=== PATIENT | female | born 1945 | race Two or more races ===

== ENCOUNTER 2016-12-31 11:21 | Emergency (ER) | payer MEDICARE ==
[~2016-12-31] VITALS: Ht 152.4 cm; Wt 68.0 kg
[2016-12-31] MEDS ORDERED: Norco 5mg/325mg tab ORAL ONE (11:30)
[2016-12-31] MEDS ORDERED: Tetanus/Diptheria/Pertussis Vaccine 0.5ml Syr IM ONE (11:30)
--- NOTE | 2016-12-31 11:32 | Emergency Room Report ---
History of Present Illness General Chief Complaint: Lower Extremity Injury Source: Patient Present Illness HPI Patient fell. She slipped on a wet floor in a store. She hit her left knee and also her head. She did not lose consciousness. She is unable to ambulate and has severe pain in her knee radiating up to her hip area. There is a scrape on her knee. The pain is 6/10, constant and worse with attempts to bend knee. Sharp and aching. The patient is not on blood thinners. The patient has not had a tetanus shot for more than 15 years. She denies chest pain, NVD, head ache, dyspnea. She denies diabetes. Allergies: Coded Allergies: No Known Allergies (Unverified , 12/31/16) Patient History Past Medical History: see triage record Social History: Denies: smoking Social History Narrative at home Last Menstrual Period: 1985 Reviewed Nursing Documentation: PMH: Agreed, PSxH: Agreed Nursing Documentation-PM Past Medical History: No History, Except For Hx Hypertension: Yes - Hyperlipidemia Review of Systems All Other Systems: negative except mentioned in HPI Physical Exam Vital Signs Date Time Temp Pulse Resp B/P Pulse Ox O2 Delivery O2 Flow Rate FiO2 12/31/16 11:05 99.0 76 16 187/82 95 Room Air Sp02 EP Interpretation: reviewed, normal General Appearance: well appearing, no apparent distress Head: normocephalic, other - bruise L forehead Eyes: bilateral eye EOMI, bilateral eye PERRL, bilateral eye normal inspection ENT: hearing grossly normal, normal voice, moist mucus membranes Neck: full range of motion, supple, no bony tend Respiratory: chest non-tender, lungs clear, no respiratory distress, speaking full sentences Cardiovascular #1: regular rate, rhythm Gastrointestinal: normal inspection, non tender, soft, no mass Musculoskeletal: digits/nails normal, no calf tenderness, swelling, other - tenderness L patella. Unable to lift leg. Neurologic: alert, oriented x3, motor strength/tone normal, DTRs symmetric, sensory intact, cerebellar normal, normal gait, speech normal Psychiatric: mood/affect normal Skin: abrasions - L knee, hematoma - L knee Medical Decision Making Diagnostic Impression: Primary Impression: Patella fracture Qualified Codes: S82.032A - Displaced transverse fracture of left patella, initial encounter for closed fracture Additional Impressions: Fall Qualified Codes: W19.XXXA - Unspecified fall, initial encounter Head injury Qualified Codes: S09.90XA - Unspecified injury of head, initial encounter ER Course The patient presents post fall. She hit her head and also her knee. She is unable to ambulate. Differential includes fracture, contusion, sprain. There is no loss of consciousness and a CT of the head is not indicated. Evaluation will be with a knee x-ray. Her physical exam suggests a fracture. She will be treated for pain. The patella it is fractured and distracted. This will need an operation. A knee immobilizer has been ordered. Her graft [facility] Position is good neurovascular is normal. The patient was submitted to be admitted for an operation. Pain was somewhat controlled. Laboratory was obtained. The patient presented to Dr. Dhruv Mckenna at [facility] and accepted in transfer. Patient is stable for transfer. Laboratory Tests Test 12/31/16 13:30 White Blood Count 15.8 K/UL (4.8-10.8) H Red Blood Count 4.59 M/UL (4.20-5.40) Hemoglobin 13.6 G/DL (12.0-16.0) Hematocrit 41.9 % (37.0-47.0) Mean Corpuscular Volume 91 FL (80-99) Mean Corpuscular Hemoglobin 29.7 PG (27.0-31.0) Mean Corpuscular Hemoglobin Concent 32.5 G/DL (32.0-36.0) Red Cell Distribution Width 12.0 % (11.6-14.8) Platelet Count 239 K/UL (150-450) Mean Platelet Volume 7.6 FL (6.5-10.1) Neutrophils (%) (Auto) 82.2 % (45.0-75.0) H Lymphocytes (%) (Auto) 11.6 % (20.0-45.0) L Monocytes (%) (Auto) 5.1 % (1.0-10.0) Eosinophils (%) (Auto) 0.8 % (0.0-3.0) Basophils (%) (Auto) 0.3 % (0.0-2.0) Prothrombin Time 9.9 SEC (9.30-11.50) Prothrombin Time INR 0.9 (0.9-1.1) PTT 26 SEC (23-33) Sodium Level 138 mEQ/L (135-145) Potassium Level 3.8 mEQ/L (3.4-4.9) Chloride Level 101 mEQ/L (98-107) Carbon Dioxide Level 25 mEQ/L (20-30) Anion Gap 12 (5-15) Blood Urea Nitrogen 15 mg/dL (7-23) Creatinine 0.7 mg/dL (0.5-0.9) Estimate Glomerular Filtration Rate > 60 mL/min (>60) Glucose Level 123 mg/dL (74-106) H Calcium Level 9.0 mg/dL (8.6-10.2) Total Bilirubin 0.3 mg/dL (0.0-1.2) Aspartate Amino Transferase (AST) 18 U/L (5-40) Alanine Aminotransferase (ALT) 15 U/L (3-33) Alkaline Phosphatase 96 U/L (35-104) Total Protein 7.2 g/dL (6.6-8.7) Albumin 4.4 g/dL (3.5-5.2) Globulin 2.8 g/dL Albumin/Globulin Ratio 1.5 (1.0-2.7) Chest X-Ray Diagnostic Results Chest X-Ray Diagnostic Results : Chest X-Ray Ordered: Yes # of Views/Limited/Complete: 1 View Indication: Other EP Interpretation: Yes Interpretation: no consolidation, no effusion, no pneumothorax, no acute cardiopulmonary disease Impression: No acute disease Interpreting ER Provider: Electronically signed by Brown Rock MD Other X-Ray Diagnostic Results Other X-Ray Diagnostic Results : X-Ray ordered: L knee # of Views/Limited Vs Complete: 3 View Indication: Pain EP Interpretation: Yes Interpretation: other - patellar fracture, STS, effusion, distraction, comminuted Impression: Other Interpreting ER Provider: Electronically signed by Brown Rock MD Last Vital Signs Date Time Temp Pulse Resp B/P Pulse Ox O2 Delivery O2 Flow Rate FiO2 12/31/16 19:43 97.8 67 18 169/69 96 Room Air Status: improved Disposition: XFER SHT-TRM HOSP Condition: Serious - but stable for transfer Brown Rock M.D. Dec 31, 2016 11:32
--- NOTE | 2016-12-31 12:17 | Diagnostic Imaging Report ---
Indication: Pain 3 views of the left knee were obtained. Findings: There is an acute fracture of the patella with associated soft tissue swelling and a joint effusion. The fracture is into superior and inferior poles by about 1.2 CM. Impression: Acute fracture of the patella as described
--- NOTE | 2016-12-31 13:24 | Diagnostic Imaging Report ---
Indication: Cough Comparison: None A single view chest radiograph was obtained. Findings: No definite infiltrate or pulmonary vascular congestion identified. The heart is enlarged. The aorta is mildly enlarged consistent with atherosclerotic vascular disease. The bones are osteopenic. Impression: No acute disease
[2016-12-31 13:44] LABS: BASOPHILS % (AUTO) 0.3 % (0.0-2.0); EOSINOPHILS % (AUTO) 0.8 % (0.0-3.0); LYMPHOCYTES % (AUTO) 11.6 % (20.0-45.0); MEAN CORPUSCULAR HEMOGLOBIN 29.7 PG (27.0-31.0); MEAN CORPUSCULAR HGB CONC 32.5 G/DL (32.0-36.0); MEAN CORPUSCULAR VOLUME 91 FL (80-99); MEAN PLATELET VOLUME 7.6 FL (6.5-10.1); MONOCYTES % (AUTO) 5.1 % (1.0-10.0); NEUTROPHILS % (AUTO) 82.2 % (45.0-75.0); PLATELET COUNT 239 K/UL (150-450); RED BLOOD COUNT 4.59 M/UL (4.20-5.40); WHITE BLOOD COUNT 15.8 K/UL (4.8-10.8)
[2016-12-31 13:54] LABS: INR 0.9 (0.9-1.1); PROTHROMBIN TIME 9.9 SEC (9.30-11.50)
[2016-12-31 13:57] LABS: ALANINE AMINOTRANSFERASE 15 U/L (3-33); ALBUMIN/GLOBULIN RATIO 1.5 (1.0-2.7); ANION GAP 12 (5-15); ASPARTATE AMINO TRANSFERASE 18 U/L (5-40); CARBON DIOXIDE 25 mEQ/L (20-30); CHLORIDE 101 mEQ/L (98-107); CREATININE 0.7 mg/dL (0.5-0.9); GLOMERULAR FILTRATION RATE > 60 mL/min (>60); HEMOLYSIS 7; POTASSIUM 3.8 mEQ/L (3.4-4.9); SODIUM 138 mEQ/L (135-145); TOTAL PROTEIN 7.2 g/dL (6.6-8.7)
[2016-12-31 14:05] VITALS: BP 160/64
[2016-12-31] MEDS ORDERED: UNOBMED (15:24)
[2016-12-31 16:09] VITALS: BP 130/80
[2016-12-31 18:03] VITALS: BP 163/63
[2016-12-31 19:39] VITALS: BP 169/69
[2016-12-31 19:43] VITALS: BP 169/69
== END 2016-12-31 19:44 | disposition short-term general hospital (02) ==
LOC: EDBD 11:21 → EMR 12:30
DX: S82.002A Unspecified fracture of left patella, initial encounter for closed fracture (principal); S00.83XA Contusion of other part of head, initial encounter; S80.212A Abrasion, left knee, initial encounter; W01.0XXA Fall on same level from slipping, tripping and stumbling without subsequent striking against object, initial encounter; Y92.512 Supermarket, store or market as the place of occurrence of the external cause; I10 Essential (primary) hypertension; E78.5 Hyperlipidemia, unspecified
CPT/HCPCS: 36415; 71010; 80053; 85025; 85610; 85730; 86850; 86900; 86901; 90471; 90715; 96361; 96372